=== PATIENT | female | born 1955 | race Caucasian/White ===

== ENCOUNTER 2016-12-19 07:24 | Day surgery (SDC) | payer OTHER ==
[2016-12-18 08:41] VITALS: BMI 23.2
[~2016-12-19 07:24] MED LIST: LACTATED RINGERS 1,000 ML IV SCH
[2016-12-19 08:11] VITALS: RESP 16; TEMP 98.1
[2016-12-19] MEDS ORDERED: LIDOCAINE 1% 20 ML VIAL (10MG/ML) FOR IV START INTRADERMA ONE (08:15)
[2016-12-19] MEDS ORDERED: PROPOFOL 10 MG/ML 20 ML VIAL IV ONE (08:27)
[2016-12-19] MEDS ORDERED: MIDAZOLAM 2 MG/2 ML VIAL ONE (08:27)
[2016-12-19] MEDS ORDERED: fentaNYL (PF) 50 MCG/ML 2 ML AMP ONE (08:27)
--- NOTE | 2016-12-19 08:42 | P.PCN ---
Date of Procedure: 12/19/16 Procedure(s) Performed: BRIEF HISTORY: Patient is a 61-year-old pleasant white female, scheduled for an elective colonoscopy as a part of evaluation of prior history of colon polyps. PROCEDURE PERFORMED: Colonoscopy. PREOPERATIVE DIAGNOSIS: History of colon polyps. IV sedation per Anesthesia. PROCEDURE: After informed consent was obtained, the patient, was brought into the endoscopy unit. IV sedation was administered by Anesthesia under continuous monitoring. Digital rectal examination was normal. Initially the Olympus CF- 160 flexible video colonoscope was then inserted in the rectum, gradually advanced into the cecum without any difficulty. Careful examination was performed as the scope was gradually being withdrawn. Ileocecal valve and the appendiceal orifice were visualized and appeared normal. Prep was excellent. Mucosa of the cecum, ascending colon, transverse colon, descending colon, sigmoid colon, and rectum appeared normal. Scattered sigmoid diverticulosis seen. Retroflexion was performed in the rectum and small internal hemorrhoids were seen. The patient tolerated the procedure well. IMPRESSION: Normal-appearing colon from rectum to cecum with no evidence of colorectal neoplasia. Scattered sigmoid diverticulosis Small internal hemorrhoids. RECOMMENDATIONS: Findings of this examination were discussed with the patient as well as her family. She was advised to have a repeat surveillance colonoscopy in 5 years because of the prior history of colon polyps.
[2016-12-19 09:08] VITALS: BP 110/67; PULSE 60
== END 2016-12-19 09:26 | disposition home or self-care (01) ==
LOC: ORWHC2ENDO 07:24
PROVIDERS: ATTEND Internal Medicine Gastroenterology
DX: Z12.11 Encounter for screening for malignant neoplasm of colon (principal); K57.30 Diverticulosis of large intestine without perforation or abscess without bleeding; K64.8 Other hemorrhoids; Z86.010 Personal history of colon polyps; Z88.5 Allergy status to narcotic agent; Z88.2 Allergy status to sulfonamides
CPT/HCPCS: J2250; J3010; J2704; G0105; 45378

== ENCOUNTER → 2018-03-27 | Outpatient (CLI) | payer BC | END | disposition home or self-care (01) | LOC: RADMAMWWP 07:08 | PROVIDERS: ATTEND Family Medicine | DX: Z53.9 Procedure and treatment not carried out, unspecified reason (principal) ==

== ENCOUNTER → 2019-04-29 | Outpatient (CLI) | payer BC ==
--- NOTE | 2019-04-30 13:51 | MM ---
Reason for exam: screening (asymptomatic). Last mammogram was performed 4 years and 1 month ago. History: Patient is postmenopausal and history of other cancer. Family history of premenopausal breast cancer in sister at age 42. Physical Findings: A clinical breast exam by your physician is recommended on an annual basis and results should be correlated with mammographic findings. MG Screening Mammo w CAD Bilateral CC and MLO view(s) were taken. Prior study comparison: April 11, 2015, bilateral MG 3d screening mammo w/cad. May 06, 2012, bilateral digital screening mammo w/CAD. There are scattered fibroglandular densities. There is no discrete abnormality. No significant changes when compared with prior studies. ASSESSMENT: Negative, BI-RAD 1 RECOMMENDATION: Routine screening mammogram of both breasts in 1 year.
== END | disposition home or self-care (01) ==
LOC: RADMAMWWP 14:55
PROVIDERS: ATTEND Family Medicine
DX: Z12.31 Encounter for screening mammogram for malignant neoplasm of breast (principal)
CPT/HCPCS: 77067

== ENCOUNTER → 2022-04-20 | Outpatient (CLI) | payer MEDICARE ==
--- NOTE | 2022-04-23 08:46 | MM ---
Reason for Exam: Screening (asymptomatic). Last mammogram was performed 3 year(s) and 0 month(s) ago. Patient History: Menarche at age 14. First Full-Term at age 27. Postmenopausal. Other cancer. Previous chest radiation therapy. Sister had breast cancer, age 42. Risk Values: Cari 5 year model risk: 3.3%. NCI Lifetime model risk: 11.5%. Prior Study Comparison: 05/06/2012 Bilateral Screening Mammogram, [facility]. 04/11/2015 Bilateral Screening Mammogram, [facility]. 04/29/2019 Bilateral Screening Mammogram, [facility]. Tissue Density: There are scattered fibroglandular densities. Findings: Analyzed By CAD. There appears symmetrical and stable. No significant interval change is evident. Stable increased lung markings on the left mediolateral oblique portion are present. No suspicious groups of microcalcifications, spiculated or lobular masses, architectural distortion or other secondary signs of malignancy are mammographically apparent. Overall Assessment: Benign, BI-RAD 2 Management: Screening Mammogram of both breasts in 1 year. A negative mammogram report should not preclude additional follow up of suspicious palpable abnormalities. Patient should continue monthly self breast exam. A clinical breast exam by your physician is recommended on an annual basis and results should be correlated with mammographic findings. Electronically signed and approved by: Dragan Gorman D.O. Radiologis
== END | disposition home or self-care (01) ==
LOC: RADMAMWWP 08:50
PROVIDERS: ATTEND Family Medicine
DX: Z12.31 Encounter for screening mammogram for malignant neoplasm of breast (principal); Z78.0 Asymptomatic menopausal state; Z80.3 Family history of malignant neoplasm of breast; Z92.3 Personal history of irradiation
CPT/HCPCS: 77063; 77067

== ENCOUNTER → 2024-01-07 | Outpatient (CLI) | payer MEDICARE ==
[2024-01-07 14:45] VITALS: BP 120/78; PULSE 80; RESP 16; TEMP 97.9
--- NOTE | 2024-01-07 15:52 | P.SLEEP ---
History of Present Illness H&P Date: 01/07/24 This is a 68-year-old female patient was referred to me for obstructive sleep apnea evaluation. The patient has been noted to have snoring and apneas during sleep as reported by her and medical staff who took care of this patient during various medical problems and comorbidities. Noted the patient is known to have bicuspid aortic valve and the patient has undergone an aortic valve replacement surgery back in 2020 at [facility]. The patient was also involved in a stroke which caused some right-sided facial weakness back in 2020. Also, around 3 weeks ago, the patient encountered an episode of generalized tonic-clonic grand mal seizures. At that point, the patient was h ospitalized and she was further evaluated at [facility]. No antiepileptics were given. The patient was treated accordingly she was discharged home. She is encountering some episodes of hypoglycemia and for that reason she was given a glucose continuous monitor which she is wearing at this point in time. No headaches. No focal neurological deficit. She does have some residual left-sided facial weakness. The patient has excessive fatigue and sleepiness. No insomnia. No choking or gasping for air in the middle of the night. No grinding of the teeth. No sleepwalking. No sleep talking. No palpitations. No anxiety. No panic attacks. She goes to bed at around 9 PM and wakes up 6:30 AM in the morning. Sometimes takes more than 30 minutes to fall asleep. Current Cleveland score is at 8. She does not take any naps during the day. No sleep paralysis. No hallucinations. No cataplexy. No other new complaints otherwise for now. No h/o any congestion heart failure or atrial fibrillation. No reported alcoholism. No history of any substance abuse. No history of head trauma. No excessive utilization of caffeinated beverages. Review of Systems Constitutional: Reports fatigue, Reports weakness Eyes: denies as per HPI, denies blurred vision, denies bulging eye, denies decreased vision, denies diplopia, denies discharge, denies dry eye, denies irritation, denies itching, denies pain, denies photophobia, denies loss of peripheral vision, denies loss of vision, denies tunnel vision/blind spots Ears: deny: decreased hearing, ear discharge, earache, tinnitus Ears, nose, mouth and throat: Reports as per HPI Breasts: absent: as per HPI, change in shape, gynecomastia, masses, nipple discharge, pain, skin changes, swelling Cardiovascular: Reports as per HPI Respiratory: Reports as per HPI Gastrointestinal: Reports as per HPI Genitourinary: Reports as per HPI Menstruation: Reports as per HPI Musculoskeletal: Reports as per HPI Musculoskeletal: absent: ankle pain, ankle stiffness, ankle swelling, as per HPI, elbow pain, elbow stiffness, elbow swelling, foot pain, foot stiffness, foot swelling, hand pain, hand stiffness, hand swelling, hip pain, hip stiffness, hip swelling, knee pain, knee stiffness, knee swelling, shoulder pain, shoulder stiffness, shoulder swelling, wrist pain, wrist stiffness, wrist swelling Integumentary: Reports as per HPI Neurological: Reports seizures, Reports weakness (Right facial weakness) Psychiatric: Reports as per HPI Endocrine: Reports as per HPI Hematologic/Lymphatic: Reports as per HPI Allergic/Immunologic: Reports as per HPI Past Medical History Past Medical History: Coronary Artery Disease (CAD), CVA/TIA, Hyperlipidemia, Seizure Disorder, Thyroid Disorder Additional Past Medical History / Comment(s): Dr Rubalcava watching Aortic valve-no sx, hx polyp,rash to aylin legs from sun exposure, stroke 2020, anemia History of Any Multi-Drug Resistant Organisms: None Reported Past Surgical History: Cardiac Valve Replacement, Section Additional Past Surgical History / Comment(s): c-sect x 3, open heart surgery 2020 Past Anesthesia/Blood Transfusion Reactions: Motion Sickness Past Psychological History: No Psychological Hx Reported Smoking Status: Former smoker Past Alcohol Use History: None Reported Additional Past Alcohol Use History / Comment(s): started smoking at age 17 til age 29,<1ppd Past Drug Use History: None Reported - Past Family History Mother Family Medical History: Congestive Heart Failure (CHF), Hyperlipidemia Additional Family Medical History / Comment(s): ulcers Father Family Medical History: Cancer Additional Family Medical History / Comment(s): esophageal Sister(s) Family Medical History: Cancer Additional Family Medical History / Comment(s): colon Medications and Allergies Home Medications and Allergies Comment(s): Irbesartan 37.5 mg p.o. daily, Lipitor 40 mg p.o. daily, aspirin 81 mg p.o. daily multivitamins and vitamin D and the patient is also on levothyroxine 50 mcg p.o. daily. Home Medications Medication Instructions Recorded Confirmed Type Aspirin [[place] Aspirin EC] 81 mg PO DAILY 01/07/24 01/07/24 History Atorvastatin [Lipitor] 40 mg PO DAILY 01/07/24 01/07/24 History Inulin/Chromium Picolinate [Fiber 1 tab PO DAILY 01/07/24 01/07/24 History Gummies Chew] Irbesartan 37.5 mg PO DAILY 01/07/24 01/07/24 History Levothyroxine Sodium [Levoxyl] 50 mcg PO DAILY 01/07/24 01/07/24 History Multivitamin [Multivitamins Adult See Rx Instructions .ROUTE .COMPLEX 01/07/24 01/07/24 History Gummies] Allergies Allergy/AdvReac Type Severity Reaction Status Date / Time hydromorphone [From Dilaudid] AdvReac Nausea & Verified 12/18/16 08:32 Vomiting Sulfa (Sulfonamide AdvReac Nausea & Verified 12/18/16 08:32 Antibiotics) Vomiting Physical Exam Vitals: Vital Signs Temp Pulse Resp BP Pulse Ox 01/07/24 14:45 97.9 F 80 16 120/78 96 Intake and Output 01/07/24 01/07/24 01/07/24 06:59 14:59 22:59 Other: Weight 67.585 kg The patient appeared well nourished and normally developed. Vital signs as documented. Head exam is unremarkable. No scleral icterus or corneal arcus noted. Neck is without jugular venous distension, thyromegaly, or carotid bruits. Carotid upstrokes are brisk bilaterally. Lungs are clear to auscultation and percussion. Cardiac exam reveals the PMI to be normally sized and situated. Rhythm is regular. First and second heart sounds normal. No murmurs, rubs or gallops. Abdominal exam reveals normal bowel sounds, no masses, no organomegaly and no aortic enlargement. Extremities are nonedematous and both femoral and pedal pulses are normal. Examination of the skin revealed no evidence of significant rashes, suspicious appearing nevi or other concerning lesions. Neurologically, the patient is awake and alert and the patient does not have any focal neurological deficit. Cranial nerves are essentially intact. Assessment and Plan Plan: Snoring with questionable witnessed apneas as reported by family members and medical staff. Rule out underlying obstructive sleep apnea. No major hypersomnia or sleepiness. [place] score is currently at 8. Patient has a body mass index of 24. Mallampati class IV. New onset seizure, single episode, under investigation. Rule out hypoglycemia contributing to his seizure disorder. CVA with some residual right facial weakness back in 2020 History of bicuspid aortic valve and the patient has undergone aortic valve replacement 2020. Hyperlipidemia Hypertension Plan Will proceed with a screening polysomnography. This will be an opportunity to rule out any underlying obstructive sleep apnea. At the same time, we will check for any nocturnal seizure activity. Continue glucose monitoring and the patient has a continuous monitor at this point. Rest of the medication will be kept unchanged. Maintain good sleep hygiene measures. Maintain regular sleep schedule. Will continue to follow. Sleep Note - Sleep Data ESS Total: 8 - Sleep Note Sleep Note: Temperature: 97.9 F Pulse Rate: 80 Respiratory Rate: 16 Blood Pressure: 120/78 SpO2: 96 Height: 5 ft 5.5 in Weight: 67.585 kg BMI: Neck Circumference: 13
== END ==
LOC: 3 N SLEEP 14:19
PROVIDERS: ATTEND Internal Medicine Critical Care Medicine
CPT/HCPCS: 99211

== ENCOUNTER 2024-01-13 19:25 | Outpatient (CLI) | payer MEDICARE ==
--- NOTE | 2024-01-20 22:28 | P.PCN ---
Date of Procedure: 01/13/24 Operative Findings: Polysomnography report Date of service is 01/13/2024 Pertinent history This is a 68-year-old female patient was referred to me for obstructive sleep apnea evaluation. The patient has been noted to have snoring and apneas during sleep as reported by her and medical staff who took care of this patient during various medical problems and comorbidities. Noted the patient is known to have bicuspid aortic valve and the patient has undergone an aortic valve replacement surgery back in 2020 at [facility]. The patient was also involved in a stroke which caused some right-sided facial weakness back in 2020. Also, around 3 weeks ago, the patient encountered an episode of generalized tonic-clonic grand mal seizures. At that point, the patient was hospitalized and she was further evaluated at [facility]. No antiepileptics were given. The patient was treated accordingly she was discharged home. She is encountering some episodes of hypoglycemia and for that reason she was given a glucose continuous monitor which she is wearing at this point in time. No headaches. No focal neurological deficit. She does have some residual left-sided facial weakness. The patient has excessive fatigue and sleepiness. No insomnia. No choking or gasping for air in the middle of the night. No grinding of the teeth. No sleepwalking. No sleep talking. No palpitations. No anxiety. No panic attacks. She goes to bed at around 9 PM and wakes up 6:30 AM in the morning. Sometimes takes more than 30 minutes to fall asleep. Current [place] score is at 8. She does not take any naps during the day. No sleep paralysis. No hallucinations. No cataplexy. No other new complaints otherwise for now. No h/o any congestion heart failure or atrial fibrillation. No reported alcoholism. No history of any substance abuse. No history of head trauma. No excessive utilization of caffeinated beverages. Pertinent physical findings Weight is 149 pounds with a body mass index of 24.4 Technical description The patient was studied using a standard complex polysomnography protocol that included recording of the Lead II EKG, Central, occipital and frontal EEG, right and left outer canthus EOG, submental EMG, right and left anterior tibialis EMG, respiratory airflow by thermocouple and or pressure/flow transducer, respiratory efforts by abdominal and thoracic PVDF belts, oxygen saturation by cable oximetry. Position by observation synchronized the PSG. Equipment used: [employer]. Sleep characteristics Total recording duration was 429.5 minutes. The total sleep time was 212.5 minutes. The wake after sleep onset time was 14 minutes. The overall sleep efficiency was 49.5%. Latency to sleep onset was 205.0 minutes. The sleep architecture was characterized by 18.1% stage I, 56.7% stage II, 0% stage III, 25.2% REM sleep. The total arousal index was 12.4 Respiratory analysis The respiratory analysis showed a total of 10 obstructive events of which 0 were obstructive apneas, 0 mixed apneas and 10 were obstructive hypopneas. The resulting AHI was 2.5. Central apnea index was 0. Oxygenation analysis The baseline pulse ox while awake was 94%. Minimum pulse ox was 88% and the patient spent approximately 48 minutes of sleep time below pulse ox of 89% and the minimum pulse ox was 88% during REM sleep. Sleep continuity summary A total of 44 arousals were counted with an index of 12.4. The respiratory arousal index was 1.1 Periodic movement activity A total of 33 periodic limb movement activity with an index of 9.3. The periodic movement activities were not associated with any arousals Cardiac summary Average heart rate was 58 with a minimum heart rate of 55 and a maximum heart rate of 61 Assessment Primary snoring without evidence of any significant sleep breathing disorder. No major hypersomnia or sleepiness. [place] score is currently at 8. Patient has a body mass index of 24. Delayed sleep onset, affecting overall sleep efficiency that was calculated to be at 49.5%. Rule out first night effect New onset seizure, single episode, under investigation. Rule out hypoglycemia contributing to his seizure disorder. No seizure activity was noted during this polysomnography report No evidence of any periodic limb movement activity CVA with some residual right facial weakness back in 2020 History of bicuspid aortic valve and the patient has undergone aortic valve replacement 2020. Hyperlipidemia Hypertension Plan No evidence of any sleep breathing disorder. No evidence of any nocturnal seizures. Minimum nocturnal oxygen saturations. No need for CPAP therapy. Maintain good sleep hygiene measures. Maintain regular sleep schedule. Referred this patient back to primary care.
== END 2024-01-14 05:50 | disposition home or self-care (01) ==
LOC: 3 N SLEEP 19:25
PROVIDERS: ATTEND Internal Medicine Critical Care Medicine
DX: G47.33 Obstructive sleep apnea (adult) (pediatric) (principal)
CPT/HCPCS: 95810